=== PATIENT | male | born 1980 | race Caucasian/White ===

== ENCOUNTER 2025-04-04 05:31 | Day surgery (SDC) | payer BC, SELFPAY ==
[2025-04-04] VITALS (8 sets, daily range): BP systolic 99–138; BP diastolic 65–93; PULSE 53–89; RESP 14–18; TEMP 36.2–37.1; O2SAT 96–100; BMI 18.8
[2025-04-04 06:27] LABS: Hematocrit 42.6 % (40-54); Hemoglobin 14.7 g/dL (13.0-16.5); Mean Corp Hgb Conc 34.5 g/dL (32-36); Mean Corpuscular Volume 90.3 fL (80-94); Mean Platelet Vol. 8.5 fl (6.2-12.0); Platelet Count 200 K/mm3 (150-450); RBC Distribution Width CV 12.4 % (11.6-14.6); RBC Distribution Width SD 41.1 fl (35.1-43.9); Red Blood Count 4.72 M/mm3 (4.6-6.2); White Blood Count 6.8 K/mm3 (4.4-11.0)
[2025-04-04] MEDS: Lactated Ringers 1,000 ML 15 ML IV (06:41)
[2025-04-04] MEDS: Lactated Ringers 1,000 ML 1000 ML IV (06:41)
--- NOTE | 2025-04-04 06:47 | PCM.PRE.AN2 ---
ASA Classification* ASA Classification ASA Classification: 2 Assessment & Plan Anesthesia* Anesthesia Assessment Anesthesia Assessment: Discussed sedation and/or anesthesia options, risks, benefits, and alternatives with patient/parents/legal guardian/POA. Questions invited. The patient/parents/legal guardian/POA seems to understand and agrees to proceed with anesthesia plan. Reviewed the physical assessment, medical history, allergy history and patient home medications list prior to surgery/procedure/anesthetic and documented any changes. Performed airway and anesthesia risk assessments. Anesthesia Type Anesthesia Type: General Anesthesia Focused Assessment* Temperature: 98.4 F Pulse Rate: 58 Blood Pressure: 99/65 Respiratory Rate: 18 Pulse Ox: 100 Airway Assessment Mouth opens: >3 cm Mallampati Score: II Labs Anesthesia Preop lab: CBC WBC, (4.4-11.0) 6.8 K/mm3 Today, 06:25 RBC, (4.6-6.2) 4.72 M/mm3 Today, 06:25 Hgb, (13.0-16.5) 14.7 g/dL Today, 06:25 Hct, (40-54) 42.6 % Today, 06:25 Plt Count, (150-450) 200 K/mm3 Today, 06:25 CHEMISTRY COAG Pre-Assessment Diagnosis/Proposed Procedure Planned Operative Procedure(s): (L) Lap Robotic Left Inguinal Hernia with mesh poss bilateral Anesthesia History 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 When Was Last Pacemaker Check QUESTION #4 FULL TEXT: You/Your Family Experience fever (hyperthermia) with Anesthesia Last Oral Intake Last Oral intake: Last Oral Intake NPO since 05:30 04/04/25 06:29 Meds taken in AM with sips of No 04/04/25 06:29 water? Meds patient instructed to take am of surgery PONV PONV - jointer machine operator: PONV - jointer machine operator Female No 03/21/25 09:06 HX of Motion Sickness Yes 03/21/25 09:06 HX of N/V After Surgery No 03/21/25 09:06 Non-Smoker No 03/21/25 09:06 Duration of Surgery greater Yes 03/21/25 09:06 than 60 minutes Number of Risk Factors 2 03/21/25 09:06 PONV Score Moderate Risk 03/21/25 09:06 Height & Weight Height & Weight: Anesthesia: Height & Weight Height 6 ft 04/04/25 06:29 Weight: 63 kg 04/04/25 06:29 Body Mass Index (BMI) 18.8 04/04/25 06:29 Respiratory Assessment Respiratory Assessment - jointer machine operator: Respiratory Tract Infection Hx - jointer machine operator Hx Respiratory Tract Infection No 03/21/25 09:06 STOP Sleep Apnea STOP Sleep Apnea - jointer machine operator: STOP Sleep Apnea - jointer machine operator Hx Hypertension No 03/21/25 09:06 Hx Sleep Apnea No 03/21/25 09:06 CPAP BIPAP Do you snore loudly (louder No 03/21/25 09:06 than talking or can be heard Do you often feel tired/ No 03/21/25 09:06 fatigued/ sleepy during daytime? Has anyone observed you stop No 03/21/25 09:06 breathing during sleep? STOP Results Negative 03/21/25 09:06 QUESTION #5 FULL TEXT : Do you snore loudly (louder than talking or can be heard through closed doors)? 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 Specify any problems Hx of Preganancy in last 3 N/A 03/21/25 09:06 Months Nurse Filling Out Transfusion JOSE G 03/21/25 09:06 & Questions: Date: 03/21/25 03/21/25 09:06 Time: 09:08 03/21/25 09:06 Patient unable to answer at this time (ie. confused, unrespo /Reproduction History /Reproductive History - jointer machine operator: /Reproductive Hx- jointer machine operator Hx Now No 03/21/25 09:06 Gestational Age (in weeks): EDC: Hx Hx Para Hx Section SAB No 03/21/25 09:06 Active Medications Active Medications: Current Medications Generic Name Dose Route Start Last Admin Trade Name Freq PRN Reason Stop Dose Admin Cefazolin Sodium 2 gm/ Sodium 110 mls @ 200 mls/hr 04/04/25 07:30 Chloride IV 04/04/25 08:02 INTRAOP ONE Lactated Ringer's 1,000 mls @ 15 mls/hr 04/04/25 06:00 04/04/25 06:41 IV 15 mls/hr .Q48H DARYL Administration PFSH Medical History Wears glasses Depression Marijuana use Anxiety Gastric reflux Heartburn Smoker Anxiety Left inguinal hernia Home Medications ?Medication ?Instructions ?Recorded ?Last Taken ?Type NK 02/16/25 Unknown History Allergy/AdvReac Type Severity Reaction Status Date / Time No Known Allergies Allergy Verified 04/04/25 06:28 Surgical History H/O wisdom tooth extraction Social History Smoking Status: Current every day smoker tobacco type: cigarettes alcohol intake: never substance use type: does not use Review of Systems (Anesthesia) ROS Narrative System reviewed and no additional complaints, except as documented.
--- NOTE | 2025-04-04 07:13 | PCM.HP.BLA ---
History and Physical Date of Admission: 04/04/25 Intake Vital Signs 02/16/2509:06 Height 6 ft Weight: 150 lb BMI 20.3 BP 112/70 Blood Pressure Location Rt brachial Position Sitting Respiration 18 Pulse 63 Pulse Source Monitor Temp 97.6 F L Temp Source Temporal Pulse Oximetry (%) 99 Oxygen Delivery Method room air Intake Visit Reasons: INGUINAL HERNIA Chief Complaint: left inguinal hernia Is patient in pain?: No Allergies No Known Allergies Allergy (Unverified 02/16/25 09:06) Medications ?Medication ?Instructions ?Recorded ?Confirmed ?Type NK 02/16/25 02/16/25 History PFSH Medical History (Updated 02/16/25 @ 09:05 by Apryl Murrieta LPN) Anxiety Left inguinal hernia Surgical History (Updated 02/16/25 @ 09:05 by Apryl Murrieta LPN) H/O wisdom tooth extraction Social History (Updated 02/16/25 @ 09:06 by Apryl Murrieta LPN) Smoking Status: Current every day smoker alcohol intake: never substance use type: does not use HPI HPI HPI: Patient is a 44-year-old male with a left inguinal hernia. He reports has been there for a long time as he has been having pain in this area but he only noticed bulging about a month ago. He says the pain and bulging is on the left with no pain and bulging on the right. He reports no nausea or vomiting or fevers or chills. ROS General General: No weight change, appetite, fatigue, colon cancer, breast cancer or weakness HEENT HEENT: No difficulty swallowing, eye injury, eye surgery, swollen glands or hoarseness Endo Endocrine: No thyroid disease, diabetes mellitus, thyroid cancer, Hair loss, heat intolerance or cold intolerance Skin Skin: No rash or changing moles Musc Musculoskeletal: No back problems, arthritis, rheumatoid arthritis, gout or joint pain Cardio Cardiovascular: No murmur, pacemaker, heart disease, atrial fibrillation, high blood pressure, heart attack, heart stent, palpitations, shortness of breath with exertion or chest pain Psych Psychiatric: Yes anxiety; No depression or hearing voices Resp Respiratory: No shortness of breath, No sleep apnea, No cough, No COPD, No asthma, No emphysema and No wheezing Gastro Gastrointestinal: No abdominal pain, No nausea or vomiting, No diarrhea, No constipation, No blood in stool, No acid reflux, No hemorrhoids, No ulcers, No gallbladder problem and No black,tarry stools Florentino Hematologic: No blood thinners, No blood disorders, No bleeding, No anemia and No blood clots Neuro Neurologic: No numbness, No tingling and No weakness Exam Const General: cooperative Orientation: alert and oriented x3 HENMT Head: normal to inspection Neck Neck: normal visual inspection and full ROM Chest Chest palpation & inspection: normal inspection of the chest Resp Effort & Inspection: normal respiratory effort Auscultation: clear to auscultation bilaterally Cardio Rate: regular rate Rhythm: regular rhythm GI Inspection: non-distended Palpation: soft, hernia indirect inguinal on the left and nontender Skin General: no rashes or lesions noted Neuro General: patient alert and patient oriented x3 Extrem General: full ROM Psych Appearance: grossly normal Mental Status: mental status grossly normal Assessment and Plan Assessment and Plan (1) Left inguinal hernia: Status: Acute Plan: The patient has a reducible left inguinal hernia. I discussed robotic assisted laparoscopic left inguinal hernia repair with mesh. I discussed the procedure in detail as well as the risks including but not limited to bleeding, infection, injury to surrounding organs such as the blood supply to the testicle, bowel, bladder. Patient understands the risks and is willing to proceed. Star Ravi MD Pager: [facility] [address] [place] [address], [address] [place] [address] Office: I have examined the patient and the H&P has been reviewed. There are no clinical changes since date of exam.
[2025-04-04] MEDS: fentaNYL 100 MCG/2 ML Ampul IV (07:28)
[2025-04-04] MEDS: Midazolam 2 MG/2 ML Syringe IV (07:30)
[2025-04-04] MEDS: Lidocaine 1% (5 ml sdv) 5 ML Vial IV (07:31)
[2025-04-04] MEDS: Cefazolin 1 GM/5 ML Vial 2 GM IV (07:32)
--- NOTE | 2025-04-04 08:36 | OP.PCM_ITS ---
Operative Report (Standard) Operative Information Date of Procedure: 04/04/25 Pre-Operative Diagnosis: Left inguinal hernia Post-Operative Diagnosis: Left inguinal hernia Surgery/Procedure Performed: Robotic assisted laparoscopic left inguinal hernia repair with mesh flash ranging crewmember: Yes Financial Aid Advisor: Ramon Pryor Tasks completed by surgical first assistant: Opening & closing and Retracting Type of Anesthesia: General/Regional RN Documented Start/Stop Times: Operation Date: 04/04/25 07:30 Case Time Into Pre-Op 04/04/25 05:58 Out of Pre-Op 04/04/25 07:22 Anesthesia Start 04/04/25 07:24 Into Room 04/04/25 07:24 Procedure Start 04/04/25 07:44 Procedure End 04/04/25 08:29 Procedure Start Time: :44 Procedure Stop Time: 08:29 Select all DRAINS/GRAFTS/IMPLANTS that apply: Implanted device Implanted device details: ProGrip mesh Estimated Blood Loss: 5 Specimen collected: No Description of surgery: Patient was brought to the operating room and general anesthesia was induced. The abdomen was prepped and draped in usual sterile fashion. A midline incision was made superior to the umbilicus and deepened to the fascia. The fascia was grasped and elevated and a Veress needle was placed into the abdomen and a drop test was performed. The abdomen was then insufflated to 15 mmHg and the Veress needle was removed and a port was placed. The camera was placed through the port to inspect for injuries from entry and there were none. Patient was placed in steep Trendelenburg position and the inguinal regions were inspected. The patient had an indirect left inguinal hernia no hernia on the right. Under direct visualization an 8 mm port was placed in the right lateral abdominal sidewall as well as the left lateral abdominal sidewall. The robot was then docked. Using electrocautery scissors the incision was made in the peritoneum in the left lower quadrant and dissection was carried inferiorly until the hernia sac was encountered. The hernia sac was reduced and divided from all of its attachments and adhesions. Dissection was carried posteriorly. Next a piece of ProGrip mesh was placed in the left lower quadrant and unfolded over the hernia defect with good coverage circumferentially. Next the peritoneum was reapproximated using a running 3 OV lock suture completely covering the mesh. The instruments were removed and the abdomen was allowed to desufflate and the ports were removed. The incisions were injected with local anesthetic and closed with interrupted 4-0 Monocryl sutures. Steri-Strips and bandages were applied. Scrotum was checked at the end of the case and contained both testicles and patient was brought back to PACU in stable condition. Surgical Findings: Indirect left inguinal hernia Complications Complications: No Admit VTE Documentation VTE Mechan Device Prophylaxis: SCD's
--- NOTE | 2025-04-04 08:39 | EX.PCM.DISCH ---
Discharge Instructions Follow Up Care Test Results: Test results from this visit will be discussed in further detail at your follow-up appointment, if applicable. Discharge Plan Admission Attending Provider: Star Ravi Primary Care Provider: Brianna Zamudio Instructions Print Language: Arabic Discharge Orders/Prescriptions Prescriptions: No Action NK Referrals / Follow Up: Brianna Zamudio, RIVET FLUNKY-C [Primary Care Provider, Family Practice] Disposition Disposition (needs filled in before D/C Order can be placed): Home, Self Care
--- NOTE | 2025-04-04 08:40 | EX.PCM.DISCH ---
Discharge Instructions Procedure Hernia Diet Discharge Diet: Light diet - advance as tolerated Activity Discharge Activity: May Not Drive (for 2-3 days or while taking narcotic pain meds.) and May Shower (with the bandage in place 1-2 days after surgery.) Lifting Restrictions: 20 pounds for 4 weeks. Additional Activity Instructions:: Climbing stairs is fine, walking is encouraged. Sitting in bed may be uncomfortable. Sitting up using your lateral muscles (sitting up sideways) is usually more comfortable. Do not drive, work heavy equipment of sign legal documents for 24 hours. If your hernia repair was an ingunial repair, you may have scrotal swelling, an ice pack and/or athletic support can provide more comfort. Pain medications may cause nausea, you should typically eat light foods as you take your pain medications. Pain medications may also cause constipation. If you have difficulty with this, discuss with your doctor. Alternate ibuprofen and Tylenol for pain control, oxycodone for breakthrough pain Dressing / Incision Call your doctor if your incision/area has: Continuous Slow Oozing, Sudden Increased Bleeding, Increased Pain/ Swelling, Increased Redness and Foul Smelling Discharge Call your doctor if you observe: Fever of 101 or Higher Suture Line Care: Avoid Pulling/Pushing and Avoid Pinching/Bending Remove Dressing in: 2 days (Remove clear bandages in 2 days, remove Steri-Strips in 7 to 10 days.) Cleanse incision/area with: Soap & Water Follow Up Care Please Follow Up With: Star Ravi MD When: Please call to schedule 2 week follow up appointment. [phone] Test Results: Test results from this visit will be discussed in further detail at your follow-up appointment, if applicable. Discharge Plan Admission Attending Provider: Star Ravi Primary Care Provider: Brianna Zamudio Instructions Print Language: Maltese Discharge Orders/Prescriptions Prescriptions: New oxycodone 5 mg Tablet 5 - 10 mg PO Q4H PRN PRN (Reason: Pain Score 4-10) 5 Days Qty: 10 0RF Referrals / Follow Up: Brianna Zamudio, QUINT[facility] [Primary Care Provider, Family Practice] Disposition Disposition (needs filled in before D/C Order can be placed): Home, Self Care
--- NOTE | 2025-04-04 08:44 | PCM.POST.ANE ---
Anesthesia: Postop Eval I Current Vital Signs Temperature: 97.2 F Pulse Rate: 89 Blood Pressure: 121/93 Respiratory Rate: 16 Pulse Ox: 96 Oxygen Delivery Method: Room Air Assessment Airway patent: Yes Spontaneous unlabored respirations: Yes Mental status: Uncooperative nausea: No Vomiting: No Anesthesia Complication: No Fluid Hydration Crystalloid volume administer (ml): 1,000 Total IV fluid infused: 1,000 Progress Note Anesthesia document: Postop Eval 1 completed: Yes
--- NOTE | 2025-04-04 09:02 | POSTOPAN2_ITS ---
Anesthesia Postop Eval I Sum Postop Eval Completion status Anesthesia document: Postop Eval 1 completed: Yes Anesthesia Postop Eval I Summary Anesthesia Postop Eval I Summary: Anesthesia Postop Eval I: Assessment Summary Airway patent Yes 04/04/25 08:45 FINE ARTS PACKER.JDEF Spontaneous unlabored Yes 04/04/25 08:45 FINE ARTS PACKER.JDEF respirations Mental status Uncooperative 04/04/25 08:45 FINE ARTS PACKER.JDEF nausea No 04/04/25 08:45 FINE ARTS PACKER.JDEF Vomiting No 04/04/25 08:45 FINE ARTS PACKER.JDEF Anesthesia Postop Eval I: Fluid Summary Crystalloid volume administer 1,000 04/04/25 08:45 FINE ARTS PACKER.JDEF (ml) Colloids volume administered ( ml) Blood Product volume administered (ml) Total IV fluid infused 1,000 04/04/25 08:45 FINE ARTS PACKER.JDEF Anesthesia Postop Eval I: Summary Notes Anesthesia Complication No 04/04/25 08:45 FINE ARTS PACKER.JDEF Anesthesia Complication Comment: Post-operative progress note Anesthesia: Postop Eval II Evaluation Mental status: Awake Pain Level: 2 nausea: No Vomiting: No
--- NOTE | 2025-04-04 09:02 | PCM.POSTANE2 ---
Anesthesia Postop Eval I Sum Postop Eval Completion status Anesthesia document: Postop Eval 1 completed: Yes Anesthesia Postop Eval I Summary Anesthesia Postop Eval I Summary: Anesthesia Postop Eval I: Assessment Summary Airway patent Yes 04/04/25 08:45 EXPANDED FUNCTION DENTAL ASSISTANT.JDEF Spontaneous unlabored Yes 04/04/25 08:45 EXPANDED FUNCTION DENTAL ASSISTANT.JDEF respirations Mental status Uncooperative 04/04/25 08:45 EXPANDED FUNCTION DENTAL ASSISTANT.JDEF nausea No 04/04/25 08:45 EXPANDED FUNCTION DENTAL ASSISTANT.JDEF Vomiting No 04/04/25 08:45 EXPANDED FUNCTION DENTAL ASSISTANT.JDEF Anesthesia Postop Eval I: Fluid Summary Crystalloid volume administer 1,000 04/04/25 08:45 EXPANDED FUNCTION DENTAL ASSISTANT.JDEF (ml) Colloids volume administered ( ml) Blood Product volume administered (ml) Total IV fluid infused 1,000 04/04/25 08:45 EXPANDED FUNCTION DENTAL ASSISTANT.JDEF Anesthesia Postop Eval I: Summary Notes Anesthesia Complication No 04/04/25 08:45 EXPANDED FUNCTION DENTAL ASSISTANT.JDEF Anesthesia Complication Comment: Post-operative progress note Anesthesia: Postop Eval II Evaluation Mental status: Awake Pain Level: 2 nausea: No Vomiting: No
== END 2025-04-04 10:25 | disposition home or self-care (01) ==
LOC: SDC 05:32 → AC 05:33
PROVIDERS: Anesthesiology; PCP Nurse Practitioner Family; Referring Provider Surgery; Visit Provider Surgery
PROC: 0YQ64ZZ Repair Left Inguinal Region, Percutaneous Endoscopic Approach (ICD-10-PCS; CPT 49650; principal; 2025-04-04 07:10)
DX: K40.90 Unilateral inguinal hernia, without obstruction or gangrene, not specified as recurrent (principal); F17.200 Nicotine dependence, unspecified, uncomplicated
CPT/HCPCS: 49650; S2900; 00840; 85027; 93005; C1781; J2405